=== PATIENT | female | born 1950 | race African-American/Black ===

== ENCOUNTER 2017-09-16 07:56 | Inpatient (IN) | payer OTHER ==
[2017-09-14 13:26] VITALS: BMI 38.9
[2017-09-16] MEDS ORDERED: CELECOXIB 200 MG CAPSULE ONE (08:30)
[2017-09-16] MEDS ORDERED: DEXAMETHASONE SOD PHOSPHATE/PF 10 MG/ML SDV ONE (09:55)
[2017-09-16] MEDS ORDERED: MIDAZOLAM HCL 2 MG/2 ML SINGLE DOSE VIAL ONE ×2 (09:55→11:37)
[2017-09-16] MEDS ORDERED: BUPIVACAINE LIPOSOME/PF (EXPAREL) 266 MG/20 ML VIAL ONE (09:56)
[2017-09-16] MEDS ORDERED: BUPIVACAINE HCL/PF 2.5 MG/ML - 30 ML VIAL IJ ONE (09:56)
[2017-09-16] MEDS ORDERED: PROPOFOL 20 ML ONE ×3 (09:58)
--- NOTE | 2017-09-16 09:58 | HP ---
History & Physical Update - History History: No Change - Physical Physical: No Change - Assessment Assessment: No Change - Plan Plan: No Change (no interval changes since visit with Dr Vega on 09/11/17. I have confirmed that patient is NOT taking Lovenox currently as it it listed under current meds.)
[2017-09-16] MEDS ORDERED: ceFAZolin SODIUM 1 GM VIAL ONE (10:16)
[2017-09-16] MEDS ORDERED: VANCOMYCIN 1,000 MG VIAL (RESTRICTED TO ID ONLY) ONE (10:16)
[2017-09-16] MEDS ORDERED: CEFAZOLIN 2 GM in DEXTROSE 5%-WATER - 50 ML IVPB ONE (10:30)
[2017-09-16] MEDS ORDERED: CELECOXIB 200 MG CAPSULE PO ONE (10:30)
[2017-09-16] MEDS ORDERED: TRANEXAMIC ACID 1000 MG/10 ML VIAL IVPUSH ONE (10:30)
[2017-09-16] MEDS ORDERED: VANCOMYCIN 1,000 MG in DEXTROSE 5%-WATER - 250 ML IVPB ONE (10:30)
[2017-09-16] MEDS ORDERED: BENZOIN/ALOE VERA/STORAX/TOLU 58 ML BOTTLE ONE (11:32)
[2017-09-16] MEDS ORDERED: MAGNESIUM HYDROX 2400MG/30ML ORAL SUSPENSION 30 ML CUP PO PRN (12:51)
[2017-09-16] MEDS ORDERED: MAG HYDROX/AL HYDROX/SIMETH 30 ML UNIT-DOSE CUP PO PRN (12:51)
[2017-09-16] MEDS ORDERED: ONDANSETRON 4 MG/2 ML VIAL IVPUSH PRN ×2 (12:51→15:28)
[2017-09-16] MEDS ORDERED: LACTATED RINGERS SOLUTION 1,000 ML IV SCH (13:00)
--- NOTE | 2017-09-16 14:19 | OP ---
DATE OF OPERATION: 09/16/2017 SURGEON: Solo Nicole MD COSURGEON: Kalpesh Nicole MD TECHNICIAN SUPPORT ENGINEER: BREANNA Rogers PREOPERATIVE DIAGNOSIS: Fixed valgus tricompartmental osteoarthritis, left knee. POSTOPERATIVE DIAGNOSIS: Fixed valgus tricompartmental osteoarthritis, left knee. OPERATION PERFORMED: 1. Left total knee arthroplasty. 2. Lateral release. ANESTHESIA: General. ANTIBIOTICS GIVEN: Kefzol 2 g and 1 g vancomycin preop. DESCRIPTION OF PROCEDURE: Patient correctly identified, brought to the operating room. Left leg was prepped, free draped in the routine manner. Kefzol 2 mg was given, 1 g vancomycin given preop, 1 g Kefzol given at the time of release of the tourniquet. Midline incision utilized. The patella was capsized laterally. Medial soft tissues freed off the bone bed of the tibia with sharp dissection. The knee was anteriorized. Using the [employer] jig system, the patella was cut from patellar ligament to quadriceps tendon and the appropriate lollipop jig applied for a 27-mm patella button. The tibia was cut to neutral, that is in accordance with the extramedullary alignment jig, this to facilitate correct alignment because of the valgus deformity. The measurement of the size tibial tray was size 2. The femur was then sized and cut using a No. 2 jig system, and a size 2 trial component seated with a size 2 tibial component and a size 17-mm tibial tray applied. This equalized the flexion-extension gaps and stabilized the coronal plane accordingly. The patella was cut to 27 mm for a patella button. Once all jig cuts had been made, the bone was thoroughly lavaged with pulsed lavage, cementing is 1 stage. All the components as noted above, size 2 femur, size tibia, a stubby distal tibial component applied to the component. All extraneous cement was removed. The patella button measured size 27. The knee was inserted with a trial 17, and then a finalized 17-mm polyethylene tray seated for a TS articulation. This gave complete stability in the coronal, sagittal plane. The wounds were thoroughly lavaged. An extensive synovectomy performed. All tissue sent to the lab for histopathology. Closure quadriceps tendon 1 Vicryl, subcutaneous 1 and 2-0 Vicryl, skin 3-0 Monocryl with Steri-Strips. No drainage. No complications. MD LIAN Pierce/[id number]
[2017-09-16] MEDS ORDERED: oxyCODONE HCL 5 MG TABLET PO PRN (15:28)
[2017-09-16] MEDS ORDERED: PROMETHAZINE HCL 25 MG/1 ML VIAL IVPB PRN (15:28)
[2017-09-16] MEDS ORDERED: ONDANSETRON 4 MG/2 ML VIAL IVPUSH ONE (15:30)
[2017-09-16] MEDS: ACETAMINOPHEN 325 MG TABLET (FP) PO SCH ×2 (15:34→21:50)
[2017-09-16] MEDS: amLODIPine BESYLATE 5 MG TABLET (FP) PO SCH (17:52)
[2017-09-16] MEDS: oxyCODONE HCL 5 MG TABLET PO PRN ×2 (17:58→23:53)
[2017-09-16] MEDS: CEFAZOLIN 2 GM/D5W 2 GM/50 ML ML IVPB SCH (20:41)
[2017-09-16] MEDS: oxyCODONE HCL 10 MG SUSTAINED ACTING TABLET PO SCH (21:50)
[2017-09-16] MEDS: SENNOSIDES/DOCUSATE COMBO (SENNA PLUS) TABLET (UD) PO SCH (21:50)
[2017-09-16] MEDS: NADOLOL 20 MG TABLET (FP) PO SCH (22:00)
[2017-09-17] MEDS ORDERED: VANCOMYCIN 1 GRAM (PRE-DOCKED) 1,000 MG/250 ML BAG IVPB ONE
[2017-09-17] MEDS: ACETAMINOPHEN 325 MG TABLET (FP) PO SCH ×4 (03:38→21:14)
[2017-09-17] MEDS: CEFAZOLIN 2 GM/D5W 2 GM/50 ML ML IVPB SCH (03:41)
[2017-09-17] MEDS: oxyCODONE HCL 5 MG TABLET PO PRN ×3 (07:14→19:46)
[2017-09-17 07:47] LABS: HEMATOCRIT 35.3 % (32.4-45.2); HEMOGLOBIN 12.2 GM/dl (10.7-15.3); MCH 31.7 pg (25.7-33.7); MCHC 34.6 g/dl (32.0-36.0); MEAN CELL VOLUME 91.8 fl (80-96); MEAN PLT VOLUME 7.8 fl (7.5-11.1); PLATELET COUNT 154 K/MM3 (134-434); RBC 3.84 M/mm3 (3.60-5.2); RDW 13.9 % (11.6-15.6); WHITE BLOOD COUNT 10.1 K/mm3 (4.0-10.8)
[2017-09-17 08:00] LABS: ANION GAP 2 (8-16); BLOOD UREA NITROGEN 14 mg/dl (7-18); CALCIUM 8.5 mg/dl (8.4-10.2); CHLORIDE 104 mmol/L (98-107); CO2 27 mmol/L (22-28); CREATININE 1.1 mg/dl (0.6-1.3); GLUCOSE,RANDOM 119 mg/dl (74-106); POTASSIUM 3.5 mmol/L (3.5-5.1); SODIUM 133 mmol/L (136-145)
[2017-09-17] MEDS ORDERED: oxyCODONE HCL 5 MG TABLET PO PRN (08:42)
[2017-09-17] MEDS ORDERED: ACETAMINOPHEN 1000 MG/100 ML VIAL (NON FORMULARY) IVPB ONE (08:43)
[2017-09-17] MEDS ORDERED: KETOROLAC TROMETHAMINE 30 MG/1 ML VIAL IVPUSH PRN (08:44)
--- NOTE | 2017-09-17 09:10 | CONSULT ---
Consultation: REQUESTING PROVIDER: Dr Nicole CONSULT REQUEST: We have been asked to medically evaluate this patient for medical management. HISTORY OF PRESENT ILLNESS: Patient is a 66 y/o female with a past medical history of hypertension, OA, chronic hepatits C, and SBO (s/p colostomy w/ reversal). Patient is s/p left knee replacement, POD #1. REVIEW OF SYSTEMS: CONSTITUTIONAL: Absent: fever, chills, diaphoresis, generalized weakness, malaise, loss of appetite, weight change HEENT: Absent: rhinorrhea, nasal congestion, throat pain, throat swelling, difficulty swallowing, mouth swelling, ear pain, eye pain, visual changes CARDIOVASCULAR: Absent: chest pain, syncope, palpitations, irregular heart rate, lightheadedness , peripheral edema RESPIRATORY: Absent: cough, shortness of breath, dyspnea with exertion, orthopnea, wheezing, stridor, hemoptysis GASTROINTESTINAL: Absent: abdominal pain, abdominal distension, nausea, vomiting, diarrhea, constipation, melena, hematochezia GENITOURINARY: Absent: dysuria, frequency, urgency, hesitancy, hematuria, flank pain, genital pain MUSCULOSKELETAL: Present: left knee pain Absent: myalgia, arthralgia, joint swelling, back pain, neck pain SKIN: Absent: rash, itching, pallor HEMATOLOGIC/IMMUNOLOGIC: Absent: easy bleeding, easy bruising, lymphadenopathy, frequent infections ENDOCRINE: Absent: unexplained weight gain, unexplained weight loss, heat intolerance, cold intolerance NEUROLOGIC: Absent: headache, focal weakness or paresthesias, dizziness, unsteady gait, seizure, mental status changes, bladder or bowel incontinence PSYCHIATRIC: Absent: anxiety, depression, suicidal or homicidal ideation, hallucinations. PHYSICAL EXAMINATION Vital Signs - 24 hr 09/16/17 09/16/17 09/16/17 14:05 14:10 14:15 Temperature 97.6 F 99 F Pulse Rate 65 64 62 Respiratory 16 18 18 Rate Blood Pressure 116/73 127/72 119/68 O2 Sat by Pulse 99 99 Oximetry (%) 09/16/17 09/16/17 09/16/17 14:30 14:45 15:00 Temperature Pulse Rate 61 64 62 Respiratory 18 18 20 Rate Blood Pressure 127/72 122/71 126/73 O2 Sat by Pulse 98 99 96 Oximetry (%) 04/04/18 04/04/18 04/04/18 15:15 15:30 15:45 Temperature 99 F Pulse Rate 61 63 62 Respiratory 20 20 20 Rate Blood Pressure 125/70 117/64 111/74 O2 Sat by Pulse 97 97 97 Oximetry (%) 09/16/17 09/16/17 09/16/17 16:00 20:00 21:00 Temperature 98 F 98.1 F Pulse Rate 74 73 Respiratory 16 16 16 Rate Blood Pressure 128/68 153/75 O2 Sat by Pulse 97 Oximetry (%) 09/17/17 09/17/17 09/17/17 00:00 06:00 07:57 Temperature 98.7 F Pulse Rate 60 Respiratory 16 18 Rate Blood Pressure 99/58 O2 Sat by Pulse 97 Oximetry (%) GENERAL: Awake, alert, and fully oriented, in no acute distress. HEAD: Normal with no signs of trauma. EYES: Pupils equal, round and reactive to light, extraocular movements intact, sclera anicteric, conjunctiva clear. No lid lag. EARS, NOSE, THROAT: Ears normal, nares patent, oropharynx clear without exudates. Moist mucous membranes. NECK: Normal range of motion, supple without lymphadenopathy, JVD, or masses. LUNGS: Breath sounds equal, clear to auscultation bilaterally. No wheezes, and no crackles. No accessory muscle use. HEART: Regular rate and rhythm, normal S1 and S2 without murmur, rub or gallop. ABDOMEN: Soft, nontender, not distended, normoactive bowel sounds, no guarding, no rebound, no masses. No hepatomegaly or splenomegaly. MUSCULOSKELETAL: Normal range of motion at all joints. No bony deformities or tenderness. No CVA tenderness. UPPER EXTREMITIES: 2+ pulses, warm, well-perfused. No cyanosis. No clubbing. Cap refill <2 seconds. No peripheral edema. LOWER EXTREMITIES: 2+ pulses, warm, well-perfused. No calf tenderness. No peripheral edema. LEFT LOWER EXTREMITY: hemovac, scant sangenous drainage. less than 3 second capillary refill, +3 pedal pulse NEUROLOGICAL: Cranial nerves II-XII intact. Normal speech. Normal gait. PSYCHIATRIC: Cooperative. Good eye contact. Appropriate mood and affect. SKIN: Warm, dry, normal turgor, no rashes or lesions noted. Laboratory Results - last 24 hr 09/17/17 09/17/17 07:26 07:26 WBC 10.1 RBC 3.84 Hgb 12.2 Hct 35.3 MCV 91.8 MCH 31.7 MCHC 34.6 RDW 13.9 Plt Count 154 MPV 7.8 Sodium 133 L Potassium 3.5 Chloride 104 Carbon Dioxide 27 Anion Gap 2 L BUN 14 Creatinine 1.1 Random Glucose 119 H Calcium 8.5 Active Medications Generic Name Dose Route Start Last Admin Trade Name Freq PRN Reason Stop Dose Admin Acetaminophen 650 mg 09/16/17 15:30 09/17/17 03:38 Tylenol - PO 09/19/17 15:29 650 mg Q6H [facility] Administration Al Hydroxide/Mg Hydroxide 30 ml 09/16/17 12:51 Mylanta Oral Suspension - PO Q4H PRN DYSPEPSIA Amlodipine Besylate 5 mg 09/16/17 10:00 09/16/17 17:52 Norvasc - PO Not Given DAILY [facility] Aspirin 81 mg 09/17/17 10:00 Asa - PO BID [facility] Ketorolac Tromethamine 30 mg 09/17/17 08:44 Toradol Injection - IVPUSH 09/22/17 08:43 Q6H PRN PAIN LEVEL 4 - 6 Magnesium Hydroxide 30 ml 09/16/17 12:51 Milk Of Magnesia - PO PRN PRN CONSTIPATION Nadolol 20 mg 09/16/17 22:00 09/16/17 22:00 Corgard - PO Not Given [facility] Ondansetron HCl 4 mg 09/16/17 12:51 Zofran Injection IVPUSH Q6H PRN NAUSEA Oxycodone HCl 10 mg 09/16/17 22:00 09/16/17 21:50 Oxycontin - PO 09/19/17 15:29 10 mg BID [facility] Administration Oxycodone HCl 15 mg 09/17/17 08:42 Roxicodone - PO Q3H PRN PAIN LEVEL 6-10 Oxycodone HCl 10 mg 09/17/17 08:43 Roxicodone - PO Q3H PRN PAIN LEVEL 1-5 Pantoprazole Sodium 40 mg 09/17/17 10:00 Protonix - PO DAILY [facility] Senna/Docusate Sodium 2 tablet 09/16/17 22:00 09/16/17 21:50 Pericolace - PO 2 tablet BID [facility] Administration ASSESSMENT/PLAN: 1) MS s/p left knee replacement - prn pain medication - continue i/o of hemovac - physical therapy as per the orthopedist - monitor hgb 2) cardiovascular hypertension - hold norvasc, for labile b/p patient is asymptomatic close monitoring, q4h Dispo: We will continue to follow the patient. Thank you for this consultative opportunity. Visit type - Emergency Visit Emergency Visit: No - New Patient This patient is new to me today: No - Critical Care Critical Care patient: No
[2017-09-17] MEDS: PANTOPRAZOLE 40 MG TABLET (FP) PO SCH (09:14)
[2017-09-17] MEDS: SENNOSIDES/DOCUSATE COMBO (SENNA PLUS) TABLET (UD) PO SCH ×2 (09:14→21:15)
[2017-09-17] MEDS: oxyCODONE HCL 10 MG SUSTAINED ACTING TABLET PO SCH ×2 (09:17→21:14)
[2017-09-17] MEDS: ASPIRIN 81 MG CHEWABLE TABLETS PO SCH ×2 (09:17→21:15)
[2017-09-17] MEDS: amLODIPine BESYLATE 5 MG TABLET (FP) PO SCH (09:21)
--- NOTE | 2017-09-17 10:00 | PN ---
Progress Note, Physician Chief Complaint: s/p left knee arthroplasty under spinal anesthesia post op day one History of Present Illness: adductor canal block for post op pain control. - Current Medication List Current Medications: Active Medications Acetaminophen (Tylenol -) 650 mg PO Q6H [facility] Stop: 09/19/17 15:29 Last Admin: 09/17/17 09:43 Dose: Not Given Al Hydroxide/Mg Hydroxide (Mylanta Oral Suspension -) 30 ml PO Q4H PRN PRN Reason: DYSPEPSIA Amlodipine Besylate (Norvasc -) 5 mg PO DAILY [facility] Last Admin: 09/17/17 09:21 Dose: Not Given Aspirin (Asa -) 81 mg PO BID [facility] Last Admin: 09/17/17 09:17 Dose: 81 mg Ketorolac Tromethamine (Toradol Injection -) 30 mg IVPUSH Q6H PRN PRN Reason: PAIN LEVEL 4 - 6 Stop: 09/22/17 08:43 Last Admin: 09/17/17 09:13 Dose: 30 mg Magnesium Hydroxide (Milk Of Magnesia -) 30 ml PO PRN PRN PRN Reason: CONSTIPATION Nadolol (Corgard -) 20 mg PO HS [facility] Last Admin: 09/16/17 22:00 Dose: Not Given Ondansetron HCl (Zofran Injection) 4 mg IVPUSH Q6H PRN PRN Reason: NAUSEA Oxycodone HCl (Oxycontin -) 10 mg PO BID [facility] Stop: 09/19/17 15:29 Last Admin: 09/17/17 09:17 Dose: 10 mg Oxycodone HCl (Roxicodone -) 15 mg PO Q3H PRN PRN Reason: PAIN LEVEL 6-10 Oxycodone HCl (Roxicodone -) 10 mg PO Q3H PRN PRN Reason: PAIN LEVEL 1-5 Pantoprazole Sodium (Protonix -) 40 mg PO DAILY [facility] Last Admin: 09/17/17 09:14 Dose: 40 mg Senna/Docusate Sodium (Pericolace -) 2 tablet PO BID [facility] Last Admin: 09/17/17 09:14 Dose: 2 tablet - Objective Vital Signs: Vital Signs Temperature 98.7 F 09/17/17 06:00 Pulse Rate 57 L 09/17/17 09:21 Respiratory Rate 18 09/17/17 09:21 Blood Pressure 98/45 09/17/17 09:21 O2 Sat by Pulse Oximetry (%) 97 09/17/17 07:57 Constitutional: Yes: Well Nourished Cardiovascular: Yes: WNL Respiratory: Yes: WNL Gastrointestinal: Yes: WNL Neurological: Yes: WNL Labs: CBC, BMP 09/17/17 07:26 09/17/17 07:26 Assessment/Plan patient had uncontrolled pain overnight, was taking oxycodone 10mg twice daily at home, Increased PRN oxydocone to 10 and 15 mg from 5 and 10mg, added toradol prn and one dose ofirmev. patient is doing better. dept of anesthesia will sign off case at this time unless pain control remains difficult.
[2017-09-17] MEDS ORDERED: PT OWN MED DRAWER 7, Y5N ONE (21:12)
[2017-09-17] MEDS: NADOLOL 20 MG TABLET (FP) PO SCH (21:15)
[2017-09-18] MEDS: ACETAMINOPHEN 325 MG TABLET (FP) PO SCH ×3 (03:37→15:45)
[2017-09-18 08:07] LABS: ANION GAP 7 (8-16); BLOOD UREA NITROGEN 22 mg/dl (7-18); CHLORIDE 103 mmol/L (98-107); CO2 26 mmol/L (22-28); CREATININE 1.3 mg/dl (0.6-1.3); GLUCOSE,RANDOM 102 mg/dl (74-106); POTASSIUM 3.6 mmol/L (3.5-5.1); SODIUM 136 mmol/L (136-145)
[2017-09-18 08:32] LABS: HEMATOCRIT 32.4 % (32.4-45.2); HEMOGLOBIN 10.5 GM/dl (10.7-15.3); MCH 29.7 pg (25.7-33.7); MCHC 32.3 g/dl (32.0-36.0); MEAN CELL VOLUME 92.2 fl (80-96); PLATELET COUNT 149 K/MM3 (134-434); RBC 3.52 M/mm3 (3.60-5.2); RDW 13.8 % (11.6-15.6); WHITE BLOOD COUNT 9.9 K/mm3 (4.0-10.8)
[2017-09-18] MEDS: ASPIRIN 81 MG CHEWABLE TABLETS PO SCH (09:18)
[2017-09-18] MEDS: amLODIPine BESYLATE 5 MG TABLET (FP) PO SCH (09:18)
[2017-09-18] MEDS: PANTOPRAZOLE 40 MG TABLET (FP) PO SCH (09:18)
[2017-09-18] MEDS: oxyCODONE HCL 10 MG SUSTAINED ACTING TABLET PO SCH (09:19)
[2017-09-18] MEDS: oxyCODONE HCL 5 MG TABLET PO PRN (09:19)
[2017-09-18] MEDS: SENNOSIDES/DOCUSATE COMBO (SENNA PLUS) TABLET (UD) PO SCH (09:19)
--- NOTE | 2017-09-18 09:50 | PN ---
Progress Note (short form) - Note Progress Note: 66F doing well s/p LEFT TKA POD #2. Pain well controlled. No acute events overnight. Pt. denies overnight history of chest pain, shortness of breath, nausea, vomiting, chills, & sweats. (+) Voiding; (+) Flatus; (-) BM. (+) Walked in hallway w/front frame rolling walker. All labs & vitals reviewed. PE: AAO x 3, NAD. L Knee: Dressing C/D/I. HemoVac drain intact & in place. B/L LE neurovascular status at baseline. 66F doing well s/p LEFT TKA POD #2. -Pain control: as per anaesthesia team. -DVT PPx: - Mechanical: B/L LE DIANNA's, SCD's. - Chemical: ASA EC 81mg PO BID x 6 weeks post-op. -Incentive spirometry; pulmonary toilet. -PT/OT/Rehab, OOB. -WBAT RLE. -Advance diet as tolerated. -f/u AM labs. -d/c drain this afternoon. -Care per medical hospitalist team. -Discharge planning: f/u next 09/24/2017, [facility] [place] [facility]. Call for appointment: . -Will follow. Kalpesh Nicole MD (Orthopaedic Surgery).
--- NOTE | 2017-09-18 13:14 | DS ---
Physical Exam: SUBJECTIVE: Patient seen and examined, reports feeling well, denies any chest pain or shortness of breath, reports minimal pain to the left lower extremity, patient denies any paresthesia to the left lower extremity. OBJECTIVE: Patient is a 66 y/o female with a past medical history of hypertension, OA, chronic hepatits C, and SBO (s/p colostomy w/reversal). Patient is s/p left knee replacement, spinal anesthesia. Vital Signs Temperature 97.8 F 09/18/17 06:00 Pulse Rate 58 L 09/18/17 06:00 Respiratory Rate 18 09/18/17 06:00 Blood Pressure 114/55 09/18/17 06:00 O2 Sat by Pulse Oximetry (%) 95 09/18/17 08:08 PHYSICAL EXAM GENERAL: The patient is awake, alert, and fully oriented, in no acute distress. HEAD: Normal with no signs of trauma. EYES: PERRL, extraocular movements intact, sclera anicteric, conjunctiva clear. ENT: Ears normal, nares patent, oropharynx clear without exudates, moist mucous membranes. NECK: Trachea midline, full range of motion, supple. LUNGS: Breath sounds equal, clear to auscultation bilaterally, no wheezes, no crackles, no accessory muscle use. HEART: Regular rate and rhythm, S1, S2 without murmur, rub or gallop. ABDOMEN: Soft, nontender, nondistended, normoactive bowel sounds, no guarding, no rebound, no hepatosplenomegaly, no masses. EXTREMITIES: 2+ pulses, warm, well-perfused, no edema. LEFT LOWER EXTREMITY: dressing cdi, hemovac scant sangenous drainage, less than 3 second capillary refill, +3 pedal pulse. NEUROLOGICAL: Cranial nerves II through XII grossly intact. Normal speech, gait not observed. PSYCH: Normal mood, normal affect. SKIN: Warm, dry, normal turgor, no rashes or lesions noted. LABS CBC,CMP WBC 9.9 K/mm3 (4.0-10.8) 09/18/17 07:30 RBC 3.52 M/mm3 (3.60-5.2) L 09/18/17 07:30 Hgb 10.5 GM/dl (10.7-15.3) L D 09/18/17 07:30 Hct 32.4 % (32.4-45.2) 09/18/17 07:30 MCV 92.2 fl (80-96) 09/18/17 07:30 MCH 29.7 pg (25.7-33.7) 09/18/17 07:30 MCHC 32.3 g/dl (32.0-36.0) 09/18/17 07:30 RDW 13.8 % (11.6-15.6) 09/18/17 07:30 Plt Count 149 K/MM3 (134-434) 09/18/17 07:30 MPV 8.0 fl (7.5-11.1) 09/18/17 07:30 Sodium 136 mmol/L (136-145) 09/18/17 07:30 Potassium 3.6 mmol/L (3.5-5.1) 09/18/17 07:30 Chloride 103 mmol/L (98-107) 09/18/17 07:30 Carbon Dioxide 26 mmol/L (22-28) 09/18/17 07:30 Anion Gap 7 (8-16) L 09/18/17 07:30 BUN 22 mg/dl (7-18) H D 09/18/17 07:30 Creatinine 1.3 mg/dl (0.6-1.3) 09/18/17 07:30 Random Glucose 102 mg/dl (74-106) 09/18/17 07:30 Calcium 8.0 mg/dl (8.4-10.2) L 09/18/17 07:30 HOSPITAL COURSE: The patient was admitted to the Med-Surg Unit after an elective left total knee replacement. On post operative day 1, the patient ambulated the hallways with assistance. Narcotic and non-narcotic pain management control was achieved with an oral and IV approach. POD #2, the surgical drain was removed fully intact and without incident. Zarina-operative IV ABX were administered. DVT prophylaxis was achieved with SCDs and early ambulation. The patient ambulated with Physical Therapy and will received home physical therapy upon discharge. Narcotic scripts were checked with [employer] ADMINISTRATIVE ASSISTANT prior to escibe. The discharge instructions and an oral pain management plan were reviewed with the patient. All questions answered. Above plan discussed with Dr. Nicole nd agreed. Date of Admission:09/16/17 Date of Discharge: 09/18/17 Minutes to complete discharge: 45 Visit type - Case Type Case Type: Scheduled Admission - Emergency Emergency Visit: No - New patient This patient is new to me today: No - Critical Care Critical Care patient: No
[2017-09-18 14:24] VITALS: BP 119/59; PULSE 65; TEMP 98.6
--- NOTE | 2017-09-18 16:47 | PATH ---
Surgical Pathology Report Patient Name: EMERY SCHMITT Med. Rec. #: [id number] /Age/Gender: 1950 (Age: 66) / F Account: [id number] Location: [facility] MED-SURG Taken: 09/16/2017 Received: 09/16/2017 Reported: 09/18/2017 Physicians: Solo Nicole M.D. Specimen(s) Received BONE LEFT KNEE Clinical History Left knee osteoarthritis Final Diagnosis BONE, LEFT KNEE, TOTAL KNEE REPLACEMENT: DEGENERATIVE JOINT DISEASE. Electronically Signed She Molina M.D. Gross Description Received in formalin labeled "bone left knee," is a 10.0 x 8.5 x 1.8 cm aggregate of multiple portions of bone and soft tissue. The tibial plateau measures 7.4 x 5.5 x 1.6 cm. There is a 2 cm in greatest dimension area of eburnation present. The remaining articular surfaces are paul-yellow and diffusely granular. The underlying trabecular bone is yellow and hard. Communication Electronic Technician sections are submitted in one cassette, following decalcification. [facility]
== END 2017-09-18 18:50 | disposition home health service (06) | DRG 470 ==
LOC: FM/S 07:56
PROVIDERS: ADMIT Orthopaedic Surgery Orthopaedic Surgery of the Spine; ATTEND Orthopaedic Surgery Orthopaedic Surgery of the Spine
PROC: 0SBD0ZZ Excision of Left Knee Joint, Open Approach (ICD-10-PCS; 2017-09-16)
PROC: 0SRD069 Replacement of Left Knee Joint with Oxidized Zirconium on Polyethylene Synthetic Substitute, Cemented, Open Approach (ICD-10-PCS; principal; 2017-09-16 12:18)
DX: M17.9 Osteoarthritis of knee, unspecified (principal); M21.062 Valgus deformity, not elsewhere classified, left knee; I10 Essential (primary) hypertension
CPT/HCPCS: 36415; 73560-TC-LT-FY; 80048; 85027; 94010; 94760; 97116-GP; 97161-GP; J0131